=== PATIENT | female | born 1995 ===

== ENCOUNTER 2021-03-28 08:42 | Emergency (ER) | payer OTHER ==
[~2021-03-28] VITALS: Ht 149.9 cm; Wt 60.3 kg
[2021-03-28] MEDS ORDERED: PRENATAL + DHA1 EAC1 PO (08:49)
== END 2021-03-28 11:51 | disposition home or self-care (01) ==
LOC: ER 08:42
DX: O26.853 Spotting complicating pregnancy, third trimester (principal); Z3A.19 19 weeks gestation of pregnancy; Z03.818 Encounter for observation for suspected exposure to other biological agents ruled out

== ENCOUNTER 2021-07-21 09:11 | Emergency (ER) | payer OTHER ==
[~2021-07-21] VITALS: Ht 152.4 cm; Wt 55.8 kg
[~2021-07-21 09:11] MED LIST: PRENATAL + DHA1 EAC1 PO
[2021-07-21] MEDS ORDERED: PROMETRIUM200 MG PO (09:30)
== END 2021-07-21 12:30 | disposition left against medical advice (07) ==
LOC: ER 09:11
DX: O26.891 Other specified pregnancy related conditions, first trimester (principal)